=== PATIENT | male | born 1975 | race Caucasian/White ===

== ENCOUNTER 2018-08-09 10:55 | Outpatient (CLI) | payer OTHER ==
--- NOTE | 2018-08-09 13:42 | XRAY Report ---
Reason: SHOULDER PAIN,RIGHT Procedure Date: 08/09/2018 Accession Number: [id number] / [id number] Procedure: WCP - Shoulder 2 View RT CPT Code: FULL RESULT: EXAM: RIGHT SHOULDER RADIOGRAPHY EXAM DATE: 08/09/2018 11:04 AM. CLINICAL HISTORY: shoulder pain, right. COMPARISON: None. TECHNIQUE: 3 views. FINDINGS: Bones: Normal. No fracture or bone lesion. Joints: The glenohumeral and acromioclavicular joints are normal. Soft tissues: 5 mm faint calcification superimposes over the upper humeral head, consistent with calcific tendinitis. IMPRESSION: Probable calcific tendinitis of the supraspinatus tendon. No fracture. RADIA
== END 2018-08-09 10:56 | disposition home or self-care (01) ==
LOC: DI.WCP 10:55
PROVIDERS: ATTEND Family Medicine
DX: M25.811 Other specified joint disorders, right shoulder (principal)

== ENCOUNTER 2019-02-06 19:55 | Emergency (ER) | payer OTHER ==
[2019-02-06 20:07] VITALS: BP 140/97
--- NOTE | 2019-02-06 20:47 | ED Physician Documentation ---
History of Present Illness - Stated complaint Stated Complaint: R SIDED PX - Chief complaint Chief Complaint: Ext Problem - History obtained from History obtained from: Patient - History of Present Illness Timing: Today (He had a trip and fall this afternoon and fell against a concrete thing with his right chest wall and his moderate pain of the lower mid lateral right chest wall but declines pain medication. No other injuries.) Review of Systems Constitutional: reports: Reviewed and negative Ears: reports: Reviewed and negative Cardiac: reports: Reviewed and negative PD PAST MEDICAL HISTORY - Past Surgical History Past Surgical History: Yes General: Appendectomy - Present Medications Home Medications: Ambulatory Orders Medication Instructions Recorded Confirmed Acyclovir 400 mg PO DAILY 02/06/19 02/06/19 - Allergies Allergies/Adverse Reactions: Allergies Allergy/AdvReac Type Severity Reaction Status Date / Time No Known Drug Allergies Allergy Verified 02/06/19 20:07 - Social History Does the pt smoke?: Yes Smoking Status: Former smoker Does the pt drink ETOH?: Yes Does the pt have substance abuse?: No PD ED PE NORMAL - Vitals Vital signs reviewed: Yes - General General: Alert and oriented X 3, No acute distress - Cardiac Cardiac: RRR, No murmur - Respiratory Respiratory: No respiratory distress, Clear bilaterally, Other (Mild tenderness without deformity, may be rib 9 or so, anterior axillary line on the right. There is little scratch there but no deformity.) - Extremities Extremities: No edema, No calf tenderness / cord - Neuro Neuro: Alert and oriented X 3, Normal speech Results - Vitals Vitals: Vital Signs - 24 hr 02/06/19 20:03 Temperature 36.2 C L Heart Rate 71 Respiratory 18 Rate Blood Pressure 140/97 H O2 Saturation 99 Oxygen O2 Source Room air - Rads (name of study) X-rays of the right ribs and chest Radiology: EMP read contemporaneously (No displaced fracture) Departure - Departure Disposition: 01 Home, Self Care Clinical Impression: Contusion of right chest wall Qualifiers: Encounter type: initial encounter Qualified Code(s): S20.211A - Contusion of right front wall of thorax, initial encounter Condition: Good Record reviewed to determine appropriate education?: Yes Instructions: ED Contusion Chest Wall Comments: Ibuprofen as needed for pain, return for new or worsening symptoms. Follow-up with your doctor as needed.
--- NOTE | 2019-02-06 21:20 | XRAY Report ---
Reason: right chest vs concrete wall Procedure Date: 02/06/2019 Accession Number: [id number] / [id number] Procedure: XR - Ribs w/PA Chest RT CPT Code: FULL RESULT: EXAM: RIGHT RIB RADIOGRAPHY EXAM DATE: 02/06/2019 08:29 PM. CLINICAL HISTORY: Right chest vs concrete wall. COMPARISON: SHOULDER 2 VIEW RT 08/09/2018 10:52 AM. TECHNIQUE: 1 view of the chest and 2 views of the ribs. FINDINGS: LUNGS: The lungs are hypoventilatory with compressive changes. The aerated portions of the lungs are clear, however the lung bases are poorly evaluated. PLEURA: No significant pleural effusion. No clinically significant pneumothorax. MEDIASTINUM: The cardiomediastinal silhouette is unremarkable. BONES: No displaced acute fracture. No suspicious osseous lesions. IMPRESSION: 1. No displaced acute fracture. 2. Expiratory chest x-ray. No acute cardiopulmonary process within the limits of the study. RADIA
== END 2019-02-06 21:33 | disposition home or self-care (01) ==
LOC: ED 19:55
DX: S20.211A Contusion of right front wall of thorax, initial encounter (principal); W01.198A Fall on same level from slipping, tripping and stumbling with subsequent striking against other object, initial encounter; Y93.H3 Activity, building and construction; Y92.009 Unspecified place in unspecified non-institutional (private) residence as the place of occurrence of the external cause; Z87.891 Personal history of nicotine dependence
CPT/HCPCS: 99282; 99283

== ENCOUNTER 2019-09-03 15:06 | Outpatient (CLI) | payer OTHER | END 2019-09-03 15:07 | disposition home or self-care (01) | LOC: COV 15:06 | PROVIDERS: ATTEND Family Medicine | DX: R06.02 Shortness of breath (principal) | CPT/HCPCS: 81599 ==

== ENCOUNTER 2020-02-24 13:08 | Outpatient (CLI) | payer OTHER ==
--- NOTE | 2020-02-24 14:42 | XRAY Report ---
PROCEDURE: Lumbar Spine Complete INDICATIONS: Chronic lumbar back pain TECHNIQUE: 4 views of the lumbar spine were acquired. COMPARISON: None. FINDINGS: Bones: Normal lumbar vertebral body height and alignment. No suspicious lytic or blastic osseous lesi on. No pars defect. Disc height loss from L2-L3 through L5-S1. Facet hypertrophy at from L3-L4 throug h L5-S1. Soft tissues: Overlying bowel gas pattern is normal. No suspicious soft tissue calcifications. IMPRESSION: Degenerative changes in the lower lumbar spine. Reviewed by: Roberto Ponce MD on 02/24/2020 2:41 PM PDT Approved by: Roberto Ponce MD on 02/24/2020 2:41 PM PDT Station ID: [id number]
== END 2020-02-24 13:09 | disposition home or self-care (01) ==
LOC: DI 13:08
PROVIDERS: ATTEND Family Medicine
DX: M47.816 Spondylosis without myelopathy or radiculopathy, lumbar region (principal)
CPT/HCPCS: 72110

== ENCOUNTER 2020-03-16 09:48 | Outpatient (CLI) | payer OTHER ==
[2020-03-16] MEDS ORDERED: IOVERSOL 320 50 ML VIAL ONE (10:00)
[2020-03-16] MEDS ORDERED: IOVERSOL 320 100 ML VIAL IVP ONE ×2 (10:01→18:46)
--- NOTE | 2020-03-16 14:45 | CT Report ---
PROCEDURE: Abdomen/Pelvis W INDICATIONS: HERNIA OF ABDOMINAL WALL CONTRAST: IV CONTRAST: Optiray 320 ml: 100 PO CONTRAST: Optiray 320 ml50 TECHNIQUE: After the administration of intravenous contrast, 5 mm thick sections acquired from the diaphragms to the symphysis. 5 mm thick coronal and sagittal reformats were acquired. For radiation dose reducti on, the following was used: automated exposure control, adjustment of mA and/or kV according to rashel ent size. COMPARISON: None. FINDINGS: Image quality: Excellent. ABDOMEN: Lung bases: Lung bases are clear. Heart size is normal. Solid organs: Liver and spleen are normal in size and enhancement. Gallbladder is normal. Biliary system is non dilated. Pancreas enhances normally. No adrenal nodules. Kidneys demonstrate normal size and enhancement, without hydronephrosis. Peritoneum and bowel: Bowel loops demonstrate normal wall thickness and caliber. No free fluid or a ir. Nodes and vessels: No retroperitoneal or mesenteric adenopathy by size criteria. Aorta and inferior vena cava are normal in size. Miscellaneous: No ventral hernia demonstrated. PELVIS: Genitourinary: Bladder wall thickness is normal. Miscellaneous: There is a small fat-containing left inguinal hernia. No inguinal hernia on the right. No threshold enlarged pelvic or inguinal lymph nodes. Bones: No suspicious bony lesions. No verteb ral body compression fractures. IMPRESSION: Small fat-containing left inguinal hernia. No other ventral or abdominal wall hernia demonstrated. Reviewed by: Roberto Ponce MD on 03/16/2020 2:43 PM PDT Approved by: Roberto Ponce MD on 03/16/2020 2:43 PM PDT Station ID: [id number]
[2020-03-16] MEDS ORDERED: IOVERSOL 320 50 ML VIAL PO ONE (18:45)
== END 2020-03-16 09:49 | disposition home or self-care (01) ==
LOC: DI 09:48
PROVIDERS: ATTEND Physician Assistant
DX: K40.90 Unilateral inguinal hernia, without obstruction or gangrene, not specified as recurrent (principal)
CPT/HCPCS: 74177; Q9967

== ENCOUNTER 2020-04-15 15:05 | Outpatient (CLI) | payer OTHER ==
--- NOTE | 2020-04-15 15:09 | XRAY Report ---
PROCEDURE: Shoulder 3 View RT INDICATIONS: SHOULDER PAIN, RIGHT TECHNIQUE: 4 views of the shoulder were acquired. COMPARISON: 08/09/2018 FINDINGS: Bones: No acute fractures or dislocations. There are degenerative changes of the acromioclavicular joint. No suspicious bony lesions. Visualized ribs appear intact. Coracoclavicular and acromioclavi cular intervals are maintained. Soft tissues: Small ossification projects over the superolateral right humeral head. This is relativ concepción stable in appearance. No suspicious soft tissue calcifications. IMPRESSION: Right shoulder without acute fracture or dislocation. Mild degenerative changes of the a cromioclavicular joint. Findings consistent with sequela of chronic calcific rotator cuff tendinopath y. Reviewed by: Dusty Xie MD on 04/15/2020 3:07 PM PST Approved by: Dusty Xie MD on 04/15/2020 3:07 PM PST Station ID: [id number]
== END 2020-04-15 23:59 | disposition home or self-care (01) ==
LOC: DI.N 15:05
PROVIDERS: ATTEND Orthopaedic Surgery
DX: M19.011 Primary osteoarthritis, right shoulder (principal)

== ENCOUNTER 2020-04-21 15:42 | Outpatient (CLI) | payer OTHER ==
--- NOTE | 2020-04-21 16:46 | MRI Report ---
PROCEDURE: Pelvis W/O INDICATIONS: RT HIP STRAIN TECHNIQUE: Noncontrast coronal T1 spin echo and STIR through the bony pelvis. Sagittal T2 FSE with fat saturati on, oblique axial PD FSE and T2 FSE with fat saturation through the symphysis pubis. COMPARISON: None. FINDINGS: Image quality: Excellent. Tendons and muscles: The attachments of the rectus abdominis and adductor longus muscles anterior to the pubic bodies appear intact bilaterally. The intervening common aponeurosis demonstrates normal morphology and signal. More inferiorly, the adductor longus musculotendinous junctions appear normal , without tendinopathy or tears. More inferior images demonstrate no fascial herniations of the addu ctor longus muscle fibers. Bony structures: No focal bone marrow edema around the symphysis pubis. No productive or erosive [place] changes to suggest osteitis pubis. No stress fractures. No suspicious marrow space occupying les ions. Other tendons: The gluteus medius and minimus tendons appear intact, without associated muscle atrop hy. The iliopsoas tendon appears intact, without adjacent bursal fluid collections. The origin of t he hamstring tendons are intact at the ischial tuberosities. Hip joints: Larger field of view images demonstrate no avascular necrosis of the femoral heads. The acetabular labrum appears intact in the absence of intra-articular contrast. Soft tissues: Immediately lateral to the rectus abdominis tendon fibers, the superficial rings of th e inguinal canals demonstrate no hernias. The proximal sciatic neurovascular bundles appear normal a djacent to the hamstring tendons. No free pelvic fluid. Bladder wall thickness is normal. Genitour inary structures and bowel loops appear normal where visualized. IMPRESSION: Etiology of current predominantly right-sided hip pain is not identified. A joint effusion or evidenc e of bursitis is not found at the right hip area, and there is no visualized evidence of muscle or te ndon tear. No inflammatory process is found in the lower pelvis, right hip area, and proximal right t high. Reviewed by: Keo Bowman MD on 04/21/2020 4:44 PM PST Approved by: Keo Bowman MD on 04/21/2020 4:44 PM PST Station ID: [id number]
== END 2020-04-21 15:43 | disposition home or self-care (01) ==
LOC: DI 15:42
PROVIDERS: ATTEND Physician Assistant
DX: S76.011S Strain of muscle, fascia and tendon of right hip, sequela (principal)
CPT/HCPCS: 72195